=== PATIENT | male | born 1985 | race Caucasian/White ===

== ENCOUNTER 2024-01-06 01:03 | Emergency (ER) | payer MEDICAID ==
[~2024-01-06] VITALS: Ht 167.6 cm; Wt 78.0 kg
[2024-01-06 01:33] VITALS: O2SAT 99
[2024-01-06 01:42] LABS: BASOPHILS % 0.7 % (0.0-2.0); EOSINOPHILS % 2.3 % (0.0-5.0); HEMATOCRIT. 41.1 % (42.0-52.0); HEMOGLOBIN. 13.7 g/dL (14.0-18.0); LYMPHOCYTES % 34.6 % (20.0-50.0); MEAN CORPUSCULAR HEMOGLOBIN 30.3 pg (28.0-32.0); MEAN CORPUSCULAR HGB CONC 33.4 g/dL (31.0-37.0); MEAN CORPUSCULAR VOLUME 90.6 fL (80.0-94.0); MEAN PLATELET VOLUME 7.3 fl (7.4-10.4); MONOCYTES % 9.8 % (2.0-8.0); NEUTROPHILS % 52.6 % (40.0-76.0); PLATELET 398 x1000/uL (130-400); RED BLOOD CELL COUNT 4.54 mill/uL (4.7-6.1); RED CELL DISTRIBUTION WIDTH 14.9 % (11.6-14.6); WHITE BLOOD COUNT 8.3 x1000/uL (4.5-11.0)
[2024-01-06 01:44] LABS: CHLORIDE 105 mEq/L (98-107); POTASSIUM 3.7 mEq/L (3.5-5.1); SODIUM 137 mEq/L (136-145)
[2024-01-06 01:45] LABS: CALCIUM 9.6 mg/dL (8.7-10.4); CARBON DIOXIDE 26 mEq/L (21-32)
[2024-01-06 01:50] LABS: CREATININE 1.2 mg/dL (0.6-1.3); GLUCOSE 128 mg/dL (70-105); UREA NITROGEN BLOOD 20 mg/dL (9-23)
[2024-01-06 01:51] LABS: TROPONIN I HIGH SENSITIVITY 24 ng/L (3.0-53)
[2024-01-06] MEDS ORDERED: ASPIRIN 81MG TABLET PO ONE (02:00)
[2024-01-06] MEDS ORDERED: KETOROLAC 30MG/ML VIAL IM ONE (02:00)
[2024-01-06] MEDS ORDERED: NAPR500T7 MT (03:17)
[2024-01-06 03:42] LABS: TROPONIN I HIGH SENSITIVITY 25 ng/L (3.0-53)
[2024-01-06] MEDS: KETOROLAC 30MG/ML VIAL IM NR (03:47)
[2024-01-06] MEDS: ASPIRIN 81MG TABLET PO NR (03:47)
[2024-01-06 04:15] VITALS: BP 133/84; PULSE 75; RESP 18; TEMP 98.1
== END 2024-01-06 04:28 | disposition home or self-care (01) ==
LOC: ER 01:15
DX: R07.9 Chest pain, unspecified (principal); M25.512 Pain in left shoulder; M25.511 Pain in right shoulder
CPT/HCPCS: 80048; 85025; 84484; 36415; 71045; 93005; 99285; Z7610; J1885